=== PATIENT | female | born 1960 | race Caucasian/White ===

== ENCOUNTER 2016-12-11 22:32 | Observation (INO) | payer OTHER ==
[2016-12-11 22:33] VITALS: BMI 24.3
[2016-12-11 22:51] VITALS: RESP 20
--- NOTE | 2016-12-12 00:02 | C.PDOC ---
History Of Present Illness Patient with known history of COPD/asthma, DVT/PE with IVC filter and Lupus c/o recent onset of cold symptoms with cough and congestion for the past week. She was seen by her PMD Dr Moser and started on Cipro without relief. The antibiotic was changed to Zithromax several days ago. She continues to cough producing a yellow sputum. She is now c/o severe right sided pleuritic chest pain that is worse with deep inspiration, movement and lying supine. She feels short of breath and feverish. She did use her nebulizer prior to arrival with some relief. Time Seen by Provider: 12/11/16 22:43 Chief Complaint (Nursing): Headache History Per: Patient History/Exam Limitations: no limitations Onset/Duration Of Symptoms: Days Current Symptoms Are (Timing): Still Present Initiating Event: Upper Respiratory Illness Quality: Sharp, "Pain" Exacerbating Factor(s): Laying Flat Current Respiratory Medications: Albuterol, Steroid Inhaler Past Medical History Vital Signs: Last Vital Signs Temp 98.2 F 12/11/16 23:19 Pulse 79 12/11/16 23:19 Resp 20 12/11/16 23:19 BP 146/88 12/11/16 23:19 Pulse Ox 95 12/12/16 00:49 - Medical History PMH: Anxiety, Arthritis, Asthma, COPD, Depression, Diabetes (New Onset), Deep Vein Thrombosis, Gastritis, Kidney Stones, Mitral Valve Prolapse, Pneumonia, Pulmonary Embolism, Chronic Kidney Disease, Sleep Apnea Other PMH: Lupus, Pulmonary Embolism Surgical History: No Surg Hx - [facility] Procedures CYSTOSCOPY NEC (10/05/14) URETEROSCOPY (10/05/14) Family History: States: Unknown Family Hx - Social History Hx Tobacco Use: No Hx Alcohol Use: No Hx Substance Use: No - Immunization History Hx Tetanus Toxoid Vaccination: Yes Hx Influenza Vaccination: Yes Hx Pneumococcal Vaccination: Yes Review Of Systems Except As Marked, All Systems Reviewed And Found Negative. Constitutional: Positive for: Fever, Weakness, Malaise ENT: Negative for: Nose Discharge, Nose Congestion, Throat Pain Cardiovascular: Positive for: Chest Pain Respiratory: Positive for: Cough, Shortness of Breath, SOB with Excertion, Pleuritic Pain, Sputum (yellow), Wheezing Gastrointestinal: Negative for: Nausea, Vomiting, Abdominal Pain Skin: Negative for: Rash Neurological: Negative for: Weakness Physical Exam - Physical Exam Appears: In Acute Distress Skin: Normal Color, Warm, Dry Head: Atraumatic Eye(s): bilateral: Normal Inspection, PERRL, EOMI Oral Mucosa: Moist Throat: Normal Neck: Normal, No Midline Cervical Tenderness Lymphatic: No Adenopathy Chest: Symmetrical Cardiovascular: Rhythm Regular Respiratory: No Accessory Muscle Use, Rhonchi (right base), No Wheezing, No Plerual Rub Gastrointestinal/Abdominal: Normal Exam, Soft, No Tenderness Extremity: No Pedal Edema, No Calf Tenderness, Capillary Refill (normal) Neurological/Psych: Oriented x3, Normal Speech, Normal Cognition ED Course And Treatment - Laboratory Results Result Diagrams: 12/12/16 00:16 12/12/16 00:16 Lab Interpretation: No Acute Changes ECG: Interpreted By De ECG Rhythm: Sinus Rhythm ECG Interpretation: No Acute Changes O2 Sat by Pulse Oximetry: 95 - Radiology CXR: Interpreted by De CXR Interpretation: Yes: No Acute Disease - Physician Consult Information Time Consulting Physician Contacted: 00:57 Physician Contacted: Gretchen Moser Disposition - Disposition Disposition Time: 00:58 Condition: FAIR Forms: [facility] (South African) - Clinical Impression Clinical Impression: Chest pain, pleuritic Physician Patient Turnover Patient Signed Over To: Roosevelt Barboza DO Handoff Comments: pending labs and contact with Dr Moser
[2016-12-12 00:24] LABS: BASO # 0.1 K/uL (0.0-0.2); BASO % 0.7 % (0.0-2.0); EOS # 0.2 K/uL (0.0-0.7); EOS % 1.8 % (0.0-4.0); HEMATOCRIT 36.8 % (34.0-47.0); LYMPH # 2.9 K/uL (1.0-4.3); LYMPH % 28.3 % (20.0-40.0); MEAN CELL VOLUME 90.8 fL (81.0-99.0); MEAN CORPUSCULAR HEMOGLOBIN 30.3 pg (27.0-31.0); MEAN CORPUSCULAR HGB CONC 33.4 g/dL (33.0-37.0); MEAN PLATELET VOLUME 8.9 fL (7.2-11.7); MONO # 0.9 K/uL (0.0-0.8); MONO % 8.3 % (0.0-10.0); NRBC % 0.1 % (0.0-2.0); RED CELL DISTRIBUTION WIDTH 14.2 % (11.5-14.5); WHITE BLOOD COUNT 10.4 K/uL (4.8-10.8)
[2016-12-12 00:35] LABS: CHLORIDE 101 mmol/L (98-107); SODIUM 134 mmol/L (132-148)
[2016-12-12 00:36] LABS: POTASSIUM 4.6 mmol/L (3.6-5.2)
[2016-12-12 00:38] LABS: ALKALINE PHOSPHATASE 59 U/L (38-126); ALT/SGPT 31 U/L (9-52); AST/SGOT 34 U/L (14-36); BILIRUBIN,TOTAL 0.8 mg/dL (0.2-1.3); BLOOD UREA NITROGEN 17 mg/dL (7-17); CALCIUM 8.3 mg/dl (8.6-10.4); CARBON DIOXIDE 23 mmol/L (22-30); GFR AFRICAN-AMERICAN > 60; GLUCOSE,RANDOM 106 mg/dL (65-105)
[2016-12-12 01:03] LABS: INR 1.5
[2016-12-12 07:38] LABS: INR 1.5
--- NOTE | 2016-12-12 08:39 | RAD ---
PROCEDURE: CHEST RADIOGRAPH, 1 VIEW HISTORY: Pneumonia COMPARISON: 07/14/2015 FINDINGS: LUNGS: Small left pleural effusion with adjacent left basilar consolidation. Mild venous congestion. Biapical pleural thickening. PLEURA: As above. CARDIOVASCULAR: Normal. OSSEOUS STRUCTURES: No significant abnormalities. VISUALIZED UPPER ABDOMEN: Normal. OTHER FINDINGS: None. IMPRESSION: Small left pleural effusion with adjacent left basilar consolidation. Mild venous congestion. Biapical pleural thickening.
[2016-12-12] MEDS: Pantoprazole 40 mg EC Tab PO SCH (10:22)
--- NOTE | 2016-12-12 11:43 | CP.PCM.PN ---
Subjective - Date & Time of Evaluation Date of Evaluation: 12/12/16 Time of Evaluation: 11:40 - Subjective Subjective: Progress note. Attending: Dr. Moser 56 yo female presenting with pleuritic chest pain x 1 day, subjective fevers. Says it has happened before when she had PE back in 2009. Initially thought it was same thing. Previously was being treated with cipro for bronchitis/URI. Failed outpatient treatment. Seen and examined at bedside today. Still having some chest and shoulder pain, also some other vague body aches and pains. Has not been taking medications for lupus. Sees Dr. Dunlap PMH: COPD DVT PE Spinal stenosis IVC filter Lupus PSH: IVC filter tonsillectomy Allergies: morphine sulfa -pcn FH DM Home meds: vitamin D ventolin symbicort Social hx: Denies smoking, drinking, drug use. Born [place] , but of [place] descent. Objective - Vital Signs/Intake and Output Vital Signs (last 24 hours): Temp Pulse Resp BP Pulse Ox 97.5 F L 70 20 112/74 96 12/12/16 08:11 12/12/16 08:11 12/12/16 08:11 12/12/16 08:11 12/12/16 08:11 - Medications Medications: Current Medications Hydromorphone HCl (Dilaudid) 2 mg IVP Q4H PRN PRN Reason: Pain, moderate (4-7) Last Admin: 12/12/16 10:29 Dose: 2 mg Pantoprazole Sodium (Protonix Ec Tab) 40 mg PO DAILY [facility] Last Admin: 12/12/16 10:22 Dose: 40 mg Warfarin Sodium (Coumadin) 6 mg PO 1800 [facility] Stop: 12/12/16 18:01 - Labs Labs: 12/12/16 00:16 12/12/16 00:16 PT 17.0 SECONDS (9.7-12.2) H 12/12/16 07:16 INR 1.5 12/12/16 07:16 - Constitutional Appears: Non-toxic, No Acute Distress - Head Exam Head Exam: ATRAUMATIC, NORMAL INSPECTION, NORMOCEPHALIC - Eye Exam Eye Exam: EOMI - ENT Exam ENT Exam: Mucous Membranes Moist - Neck Exam Neck Exam: Full ROM, Normal Inspection - Respiratory Exam Respiratory Exam: Decreased Breath Sounds. absent: Respiratory Distress - Cardiovascular Exam Cardiovascular Exam: +S1, +S2 - GI/Abdominal Exam GI & Abdominal Exam: Soft, Normal Bowel Sounds. absent: Tenderness - Extremities Exam Extremities Exam: Full ROM, Normal Inspection - Neurological Exam Neurological Exam: Alert, Awake, Oriented x3 - Psychiatric Exam Psychiatric exam: Normal Affect, Normal Mood - Skin Skin Exam: Dry, Intact, Normal Color, Warm Assessment and Plan - Assessment and Plan (Free Text) Assessment: This is a 56 year old female with past medical hx of COPD, DVT/PE, IVC filter, lupus presenting with pleuritic chest pain 1. Pleuritic chest pain -d dimer negative -VSS -trops negative -cxr negative Hx of COPD -duonebs -solumedrol 2. hx of PE -continue warfarin 6 mg po daily -check inr 3. hx of lupus -will consult. Dr. Dunlap. recs appreciated. 4. GI/DVT ppx -warfarin -protonix discussed with Dr. Moser
[2016-12-12] MEDS: Albuterol-Ipratrop 3 mg / 0.5 (3 ml) UD INH SCH ×2 (13:39→20:23)
[2016-12-13] MEDS: Albuterol-Ipratrop 3 mg / 0.5 (3 ml) UD INH SCH ×3 (01:18→13:38)
[2016-12-13] MEDS ORDERED: HYDROmorphone 1 mg/ml ISec IVP ONE (02:17)
[2016-12-13 08:00] LABS: BASO # 0.1 K/uL (0.0-0.2); BASO % 0.7 % (0.0-2.0); EOS # 0.1 K/uL (0.0-0.7); EOS % 1.5 % (0.0-4.0); HEMATOCRIT 35.8 % (34.0-47.0); LYMPH % 37.7 % (20.0-40.0); MEAN CELL VOLUME 90.9 fL (81.0-99.0); MEAN CORPUSCULAR HEMOGLOBIN 30.2 pg (27.0-31.0); MEAN CORPUSCULAR HGB CONC 33.3 g/dL (33.0-37.0); MEAN PLATELET VOLUME 9.6 fL (7.2-11.7); MONO # 0.8 K/uL (0.0-0.8); MONO % 9.5 % (0.0-10.0); NRBC % 0.1 % (0.0-2.0); RED CELL DISTRIBUTION WIDTH 14.2 % (11.5-14.5)
[2016-12-13 08:29] LABS: CHLORIDE 100 mmol/L (98-107); POTASSIUM 4.2 mmol/L (3.6-5.2); SODIUM 132 mmol/L (132-148)
[2016-12-13 08:31] LABS: AST/SGOT 30 U/L (14-36); BILIRUBIN,TOTAL 1.2 mg/dL (0.2-1.3); CARBON DIOXIDE 23 mmol/L (22-30); GFR AFRICAN-AMERICAN > 60
[2016-12-13 08:32] LABS: ALB/GLOB RATIO 1.3 (1.0-2.1); ALKALINE PHOSPHATASE 62 U/L (38-126); ALT/SGPT 16 U/L (9-52); BLOOD UREA NITROGEN 13 mg/dL (7-17); CALCIUM 8.1 mg/dl (8.6-10.4); GLUCOSE,RANDOM 82 mg/dL (65-105); TOTAL PROTEIN 6.6 g/dL (6.3-8.3)
[2016-12-13 08:46] VITALS: BP 107/69; PULSE 72; TEMP 98.5; O2SAT 96
--- NOTE | 2016-12-13 09:51 | HP ---
HISTORY OF PRESENT ILLNESS: This is a 56-year-old female, admitted to the hospital complaining of weakness, fatigue, tiredness. The patient came to the hospital with severe intractable pain. The patient is treated with narcotics, showed improvement. Advised admission, bedrest showed improvement, pulmonary embolism. No smoking. No drinking. PHYSICAL EXAMINATION: GENERAL: The patient is awake, alert, oriented. VITAL SIGNS: Temperature 98, pulse 90. HEENT: Within normal limits. NECK: Supple. CHEST: Symmetrical. HEART: Regular. ABDOMEN: Soft. EXTREMITIES: No edema. IMPRESSION: Intractable pain. The patient on bedrest, pain management. Gretchen Moser MD
[2016-12-13] MEDS: Pantoprazole 40 mg EC Tab PO SCH (10:42)
--- NOTE | 2016-12-14 10:37 | CARD ---
APPROVED REPORT EKG Measurement Heart [id number] <Conclusion> Normal sinus rhythm Possible Left atrial enlargement Borderline ECG
[2016-12-16 12:52] LABS: CCP IGG <16 Units (<20)
[2016-12-16 13:55] LABS: Interpretation Negative (Negative)
== END 2016-12-13 16:55 | disposition home or self-care (01) ==
LOC: C.ER 22:32 → C.6T 12-12 02:14
PROVIDERS: ADMIT Internal Medicine Pulmonary Disease; ATTEND Internal Medicine Pulmonary Disease
DX: R07.81 Pleurodynia (principal); J44.9 Chronic obstructive pulmonary disease, unspecified; E11.22 Type 2 diabetes mellitus with diabetic chronic kidney disease; N18.9 Chronic kidney disease, unspecified; G47.30 Sleep apnea, unspecified; I34.1 Nonrheumatic mitral (valve) prolapse
CPT/HCPCS: 36415; 71010; 80053; 82948; 83520; 84145; 84484; 85025; 85378; 85610; 85651; 86038; 86060; 86140; 86200; 86225; 86235; 87040; 93005; 94640; 96374; 97116; 97163; 97530; 99285; G0378; G8978; G8979; J1170; J2405

== ENCOUNTER 2016-12-14 08:53 | Emergency (ER) | payer OTHER ==
[2016-12-14 09:05] VITALS: RESP 18; BMI 25.5
--- NOTE | 2016-12-14 09:55 | C.PDOC ---
History Of Present Illness 56 y/o female, with PMHx of chronic DVT with IVC filter, presents to ED for evaluation of left upper leg pain since this morning. Notes that she was recently discharged yesterday from [facility] inpatient for paralysis in the right arm. Otherwise, denies change in sensation, chest pain, shortness of breath, or fever. Time Seen by Provider: 12/14/16 09:09 Chief Complaint (Nursing): Lower Extremity Problem/Injury History Per: Patient History/Exam Limitations: no limitations Onset/Duration Of Symptoms: Hrs Current Symptoms Are (Timing): Still Present Recent travel outside of the [place]: No Additional History Per: Patient Past Medical History Reviewed: Historical Data, Nursing Documentation, Vital Signs Vital Signs: Last Vital Signs Temp 98.1 F 12/14/16 11:36 Pulse 85 12/14/16 11:36 Resp 18 12/14/16 11:36 BP 116/82 12/14/16 11:36 Pulse Ox 99 12/14/16 14:41 - Medical History PMH: Anxiety, Arthritis, Asthma, COPD, Depression, Diabetes (New Onset), Deep Vein Thrombosis, Gastritis, Kidney Stones, Mitral Valve Prolapse, Pneumonia, Pulmonary Embolism, Chronic Kidney Disease, Sleep Apnea Surgical History: - [facility] Procedures CYSTOSCOPY NEC (10/05/14) URETEROSCOPY (10/05/14) Family History: States: Unknown Family Hx - Social History Hx Tobacco Use: No Hx Alcohol Use: No Hx Substance Use: No - Immunization History Hx Tetanus Toxoid Vaccination: Yes Hx Influenza Vaccination: Yes Hx Pneumococcal Vaccination: Yes Review Of Systems Except As Marked, All Systems Reviewed And Found Negative. Constitutional: Negative for: Fever, Chills Cardiovascular: Negative for: Chest Pain, Palpitations Respiratory: Negative for: Shortness of Breath Musculoskeletal: Positive for: Leg Pain (left upper leg pain) Neurological: Negative for: Weakness, Numbness, Headache Physical Exam - Physical Exam Appears: Non-toxic, No Acute Distress Skin: Normal Color, Warm, Dry Head: Atraumatic, Normacephalic Eye(s): bilateral: Normal Inspection Oral Mucosa: Moist Chest: Symmetrical Cardiovascular: Rhythm Regular, No Murmur Respiratory: Normal Breath Sounds, No Rales, No Rhonchi, No Wheezing Gastrointestinal/Abdominal: Soft, No Tenderness Extremity: Normal ROM (FROM of left leg), Tenderness (left upper leg), No Pedal Edema, Capillary Refill (less than 2 seconds), No Deformity, No Swelling Extremity: Bilateral: Atraumatic, Normal Color And Temperature Pulses: Left Dorsalis Pedis: Normal, Right Dorsalis Pedis: Normal Neurological/Psych: Oriented x3, Normal Speech, Normal Cognition, Normal Motor, Normal Sensation Gait: Steady ED Course And Treatment O2 Sat by Pulse Oximetry: 99 (RA) Pulse Ox Interpretation: Normal Progress Note: Doppler ordered and reviewed. Pt was given Tramadol. Doppler was negative. Pt is being discharged home, with instructions to follow up with PMD in 1-2 days. Reassessment Condition: Improved - Physician Consult Information Physician Contacted: Gretchen Moser Outcome Of Conversation: discharge Medical Decision Making Medical Decision Making: Patient discharged yesterday now complaining of left leg pain Patient requesting that ED call Dr Moser Case discussed with Dr Moser who requests discharge and follow up as outpatient Disposition Counseled Patient/Family Regarding: Studies Performed, Diagnosis, Need For Followup, Rx Given - Disposition Referrals: Gretchen Moser MD [Staff Provider] - Disposition: HOME/ ROUTINE Disposition Time: 11:30 Condition: STABLE Additional Instructions: Follow up with your PMD for further evaluation Return to ED if any increase symptoms Prescriptions: Cyclobenzaprine [Cyclobenzaprine HCl] 5 mg PO BID PRN #12 tab PRN Reason: Pain, Mild (1-3) Instructions: Musculoskeletal Pain (ED), Leg Pain (ED) Forms: [facility] (Botswanan) - POA Present On Arrival: None - Clinical Impression Clinical Impression: Muscle strain, Leg pain, left - PA / HAND CLERICAL VERIFIER / Resident Statement MD/DO has reviewed & agrees with the documentation as recorded. - Scribe Statement The provider has reviewed the documentation as recorded by the Scribe Sb Jones All medical record entries made by the Rezaibcarlos enrique were at my direction and personally dictated by me. I have reviewed the chart and agree that the record accurately reflects my personal performance of the history, physical exam, medical decision making, and the department course for this patient. I have also personally directed, reviewed, and agree with the discharge instructions and disposition.
[2016-12-14 11:37] VITALS: BP 116/82; PULSE 85; TEMP 98.1
[2016-12-14 14:42] VITALS: O2SAT 99
--- NOTE | 2016-12-16 14:25 | VASCLAB ---
PROCEDURE: Lower Extremity Venous Duplex Exam. HISTORY: Pain PRIORS: Last exam 10/26/2014, normal. TECHNIQUE: Bilateral common femoral, femoral, popliteal and posterior tibial, peroneal and great saphenous veins were evaluated. Flow was assessed with color Doppler, compressibility, assessment of phasic flow and augmentation response. Report prepared by NNAMDI Almeida FINDINGS: RIGHT: 1. Common Femoral Vein: 1.1. Compressibility - Fully compressible: Thrombus - None : Flow - Phasic: Augmentation -Normal: Reflux - None. 2. Femoral Vein: 2.1. Compressibility - Fully compressible: Thrombus - None : Flow - Phasic: Augmentation -Normal: Reflux - None. 3. Popliteal Vein: 3.1. Compressibility - Fully compressible: Thrombus - None : Flow - Phasic: Augmentation -Normal: Reflux - None. 4. Posterior Tibial Vein: 4.1. Compressibility - Fully compressible: Thrombus - None: Flow - Phasic: Augmentation -Normal: Reflux - None. 5. Peroneal Vein: 5.1. Compressibility - Fully compressible: Thrombus - None: Flow - Phasic: Augmentation -Normal: Reflux - None. 6. Great Saphenous Vein: 6.1. Compressibility - Fully compressible: Thrombus - None: Flow - Phasic: Augmentation - Normal: Reflux - None. LEFT: 1. Common Femoral Vein: 1.1. Compressibility - Fully compressible: Thrombus - None: Flow - Phasic: Augmentation -Normal: Reflux - None. 2. Femoral Vein: 2.1. Compressibility - Fully compressible: Thrombus - None: Flow - Phasic: Augmentation -Normal: Reflux - Mild. 3. Popliteal Vein: 3.1. Compressibility - Fully compressible: Thrombus - None : Flow - Phasic: Augmentation -Normal: Reflux - Moderate. 4. Posterior Tibial Vein: 4.1. Compressibility - Fully compressible: Thrombus - None: Flow - Phasic: Augmentation -Normal: Reflux - None. 5. Peroneal Vein: 5.1. Compressibility - Fully compressible: Thrombus - None: Flow - Phasic: Augmentation -Normal: Reflux - None. 6. Great Saphenous Vein: 6.1. Compressibility - Fully compressible: Thrombus - None: Flow - Phasic: Augmentation - Normal: Reflux - None. OTHER FINDINGS: Right: None significant. Left: None significant. IMPRESSION: Right: No evidence of deep or superficial vein thrombosis of the right lower extremity. Normal valve function noted of the right side. Left: No evidence of deep or superficial vein thrombosis of the left lower extremity. Valvular incompetence note of the left femoral and popliteal veins.
== END 2016-12-14 12:17 | disposition home or self-care (01) ==
LOC: C.ER 08:53
DX: S76.912A Strain of unspecified muscles, fascia and tendons at thigh level, left thigh, initial encounter (principal); X58.XXXA Exposure to other specified factors, initial encounter; M79.605 Pain in left leg; E11.9 Type 2 diabetes mellitus without complications; Z86.718 Personal history of other venous thrombosis and embolism

== ENCOUNTER 2017-02-23 05:23 | Inpatient (IN) | payer OTHER ==
[2017-02-23 05:24] VITALS: BMI 25.5
--- NOTE | 2017-02-23 06:32 | C.PDOC ---
History Of Present Illness 57 years old female with Hx of lupus, COPD, bilateral DVT, and PE presents to ED with complaints of left foot pain that began on Friday. Patient's last INR was 1.8. Patient states she cannot bear weight on foot. Patient denies injuries to foot, denies chest pain, SOB, nausea or vomiting, no fever or chills. . Patient also states she took Tramadol at midnight with no improvement. Time Seen by Provider: 02/23/17 06:01 Chief Complaint (Nursing): Lower Extremity Problem/Injury History Per: Patient History/Exam Limitations: no limitations Onset/Duration Of Symptoms: Days Current Symptoms Are (Timing): Still Present Recent travel outside of the [place]: No Past Medical History Reviewed: Historical Data, Nursing Documentation, Vital Signs Vital Signs: Last Vital Signs Temp 97.6 F 02/23/17 05:33 Pulse 98 H 02/23/17 05:33 Resp 20 02/23/17 05:33 BP 145/91 H 02/23/17 05:33 Pulse Ox 98 02/23/17 07:05 - Medical History PMH: Anxiety, Arthritis, Asthma, COPD, Depression, Diabetes (New Onset), Deep Vein Thrombosis, Gastritis, Kidney Stones, Mitral Valve Prolapse, Pneumonia, Pulmonary Embolism, Chronic Kidney Disease, Sleep Apnea Surgical History: - [facility] Procedures CYSTOSCOPY NEC (10/05/14) URETEROSCOPY (10/05/14) Family History: States: No Known Family Hx - Social History Hx Tobacco Use: No Hx Alcohol Use: No Hx Substance Use: No - Immunization History Hx Tetanus Toxoid Vaccination: Yes Hx Influenza Vaccination: Yes Hx Pneumococcal Vaccination: Yes Review Of Systems Constitutional: Negative for: Fever, Chills Cardiovascular: Negative for: Chest Pain, Palpitations Respiratory: Negative for: Shortness of Breath Gastrointestinal: Negative for: Nausea, Vomiting, Abdominal Pain Musculoskeletal: Positive for: Foot Pain (Left) Skin: Negative for: Rash Neurological: Negative for: Weakness, Numbness Psych: Negative for: Depression, Suicidal ideation Physical Exam - Physical Exam Appears: Non-toxic, Other (Awake and alert; appears uncomfortable) Skin: Warm, Dry Head: Atraumatic, Normacephalic Eye(s): bilateral: Normal Inspection Neck: Supple Chest: Symmetrical, No Tenderness Cardiovascular: Rhythm Regular Respiratory: Normal Breath Sounds, No Rales, No Rhonchi, No Wheezing Gastrointestinal/Abdominal: Soft, No Tenderness, No Distention Extremity: Normal ROM (Lower extremity), Tenderness (Left foot diffusly tender) , No Pedal Edema, Calf Tenderness (Posterior left), Swelling ( to left foot) Pulses: Left Dorsalis Pedis: Normal, Right Dorsalis Pedis: Normal Neurological/Psych: Oriented x3, Normal Speech, Normal Cognition ED Course And Treatment - Laboratory Results Result Diagrams: 02/23/17 06:48 02/23/17 06:48 O2 Sat by Pulse Oximetry: 98 (Room air) Pulse Ox Interpretation: Normal Medical Decision Making Medical Decision Making: Administered Tramadol. Ordered blood work, X-ray of left foot, and US of lower extremity. Disposition - Disposition Disposition Time: 07:06 Condition: STABLE Forms: [facility] (Algerian) - Clinical Impression Clinical Impression: Foot pain, left - PA / MAT MACHINE TENDER / Resident Statement MD/DO has reviewed & agrees with the documentation as recorded. - Scribe Statement The provider has reviewed the documentation as recorded by the Scribcarlos enrique Pittman All medical record entries made by the Scribe were at my direction and personally dictated by me. I have reviewed the chart and agree that the record accurately reflects my personal performance of the history, physical exam, medical decision making, and the department course for this patient. I have also personally directed, reviewed, and agree with the discharge instructions and disposition. Physician Patient Turnover Patient Signed Over To: Romero Sanchez Handoff Comments: f/u labs, xray and sonogram and dipso accordingly
[2017-02-23 06:50] LABS: BASO # 0.1 K/uL (0.0-0.2); BASO % 0.7 % (0.0-2.0); EOS % 0.4 % (0.0-4.0); LYMPH # 1.8 K/uL (1.0-4.3); MEAN CELL VOLUME 88.5 fL (81.0-99.0); MEAN CORPUSCULAR HEMOGLOBIN 30.3 pg (27.0-31.0); MEAN CORPUSCULAR HGB CONC 34.3 g/dL (33.0-37.0); MEAN PLATELET VOLUME 8.5 fL (7.2-11.7); MONO # 1.2 K/uL (0.0-0.8); MONO % 10.7 % (0.0-10.0); NEUT # 7.7 K/uL (1.8-7.0); NEUT % 71.2 % (50.0-75.0); RBC 3.96 Mil/uL (3.80-5.20); RED CELL DISTRIBUTION WIDTH 14.5 % (11.5-14.5); WHITE BLOOD COUNT 10.9 K/uL (4.8-10.8)
[2017-02-23 07:03] LABS: BLOOD UREA NITROGEN 14 mg/dL (7-17); CALCIUM 8.1 mg/dl (8.6-10.4); GFR AFRICAN-AMERICAN > 60; GFR NON-AFRICAN AMERICAN > 60
[2017-02-23 07:14] LABS: INR 3.4
--- NOTE | 2017-02-23 08:26 | RAD ---
PROCEDURE: Left Foot Radiographs. HISTORY: diffuse foot pain COMPARISON: None. FINDINGS: BONES: Normal. No fracture. JOINTS: Normal. SOFT TISSUES: Normal. OTHER FINDINGS: None. IMPRESSION: No evidence of acute fracture or dislocation.
[2017-02-23] MEDS ORDERED: Oxycodone/Acetaminophen 5/325 mg Tab ONE (12:00)
[2017-02-23] MEDS: Oxycodone/Acetaminophen 5/325 mg Tab PO PRN ×2 (12:01→22:40)
--- NOTE | 2017-02-24 08:06 | CP.PCM.PN ---
Subjective - Date & Time of Evaluation Date of Evaluation: 02/24/17 Time of Evaluation: 10:00 - Subjective Subjective: Dr. Moser note: Patient is a 57 year old female here for inretractable foot pain. She says the pain started Friday and lasted for a day and became worse even after taking Motrin. She says the pain is sharp and encompasses her whole foot. Objective - Vital Signs/Intake and Output Vital Signs (last 24 hours): Temp Pulse Resp BP Pulse Ox 97.9 F 68 20 101/66 98 02/23/17 23:10 02/23/17 23:10 02/23/17 23:10 02/23/17 23:10 02/23/17 23:10 - Medications Medications: Current Medications Oxycodone/Acetaminophen (Percocet 5/325 Mg Tab) 1 tab PO Q4H PRN PRN Reason: Pain, moderate (4-7) Stop: 02/26/17 11:56 Last Admin: 02/23/17 22:40 Dose: 1 tab Tramadol HCl (Ultram) 50 mg PO Q8 PRN PRN Reason: Pain, moderate (4-7) - Labs Labs: 02/23/17 06:48 02/23/17 06:48 PT 40.0 SECONDS (9.7-12.2) H* 02/23/17 06:48 INR 3.4 02/23/17 06:48 APTT 37 SECONDS (21-34) H 02/23/17 06:48 - Constitutional Appears: Non-toxic, No Acute Distress - Eye Exam Eye Exam: Normal appearance - Respiratory Exam Respiratory Exam: Clear to Ausculation Bilateral. absent: Rales, Rhonchi, Wheezes - Cardiovascular Exam Cardiovascular Exam: REGULAR RHYTHM, RRR, +S1, +S2. absent: Gallop, Rubs - GI/Abdominal Exam GI & Abdominal Exam: Soft, Normal Bowel Sounds. absent: Tenderness - Extremities Exam Extremities Exam: Tenderness (left foot) - Back Exam Back Exam: NORMAL INSPECTION - Neurological Exam Neurological Exam: Alert, Awake - Psychiatric Exam Psychiatric exam: Anxious - Skin Skin Exam: Normal Color, Warm Assessment and Plan (1) Foot pain, left Assessment & Plan: No redness or swelling, no evidence of gout, her urice acid is wnl. Podiatry consult x:ray unremarkable. ESR is low but CRP is high. Started Neurontin 100mg TID in addition to other medications. PT Status: Acute (2) DVT (deep venous thrombosis) Assessment & Plan: Patient is on Coumadin but her INR is 3.4, willl continue to hold her Coumadin, and re check INR tomorrow morning. Status: Chronic (3) Lupus (systemic lupus erythematosus) Assessment & Plan: Patient follows up with Dr. Dunlap. Status: Chronic (4) Prophylactic measure Assessment & Plan: supratherputic INR, Pepcid 20mg. Status: Acute
[2017-02-24] MEDS: Oxycodone/Acetaminophen 5/325 mg Tab PO PRN ×2 (11:03→21:54)
--- NOTE | 2017-02-24 11:34 | VASCLAB ---
PROCEDURE: Left Lower Extremity Venous Duplex Exam. HISTORY: left foot and leg pain, Previous DVT/PE, On Coumadin PRIORS: 12/14/16, See chart. TECHNIQUE: Left common femoral, femoral, popliteal and posterior tibial, peroneal and great saphenous veins were evaluated. Flow was assessed with color Doppler, compressibility, assessment of phasic flow and augmentation response. Report prepared by Kunal Cartagena, T FINDINGS: LEFT: 1. Common Femoral Vein: 1.1. Compressibility - Fully compressible: Thrombus - None : Flow - Phasic: Augmentation -Normal: Reflux - . 2. Femoral Vein: 2.1. Compressibility - Fully compressible: Thrombus - None: Flow - Phasic: Augmentation -Normal: Reflux - . 3. Popliteal Vein: 3.1. Compressibility - Fully compressible: Thrombus - None: Flow - Phasic: Augmentation -Normal: Reflux - Moderate. 4. Posterior Tibial Vein: 4.1. Compressibility - Fully compressible: Thrombus - None: Flow - : Augmentation -: Reflux - . 5. Peroneal Vein: 5.1. Compressibility - Fully compressible: Thrombus - None: Flow - : Augmentation -: Reflux - . 6. Great Saphenous Vein: 6.1. Compressibility - Fully compressible: Thrombus - None: Flow - Phasic: Augmentation - : Reflux - . OTHER FINDINGS: IMPRESSION: An echogenic bands and wall thickening was noted in the common femoral and proximal femoral vein, possibly as a result of scarring process from previous DVT, however they were patent. No evidence of deep or superficial vein thrombosis of the left lower extremity. Moderate venous reflux was noted in the deep venous system. Normal venous flow noted in the right common femoral vein.
--- NOTE | 2017-02-24 11:47 | HP ---
HISTORY OF PRESENT ILLNESS: Ms. Yeboah chief complaint weakness, fatigue, tiredness. Patient came to the emergency room DVT, pulmonary embolism, and a history of lupus. PHYSICAL EXAMINATION: GENERAL: The patient is awake, alert, and oriented. VITAL SIGNS: Temperature is 98, pulse 90. HEENT: Within normal limits. NECK: Supple. CHEST: Symmetrical. HEART: Regular. ABDOMEN: Soft. EXTREMITIES: No edema. IMPRESSION: Patient suffers from and deep venous thrombosis by history. At this point, she will get supportive care. Gretchen Moser MD
[2017-02-24 12:39] LABS: BASO # 0.1 K/uL (0.0-0.2); BASO % 0.6 % (0.0-2.0); EOS # 0.1 K/uL (0.0-0.7); EOS % 0.6 % (0.0-4.0); LYMPH # 2.3 K/uL (1.0-4.3); LYMPH % 22.6 % (20.0-40.0); MEAN CELL VOLUME 89.5 fL (81.0-99.0); MEAN CORPUSCULAR HEMOGLOBIN 30.2 pg (27.0-31.0); MEAN CORPUSCULAR HGB CONC 33.7 g/dL (33.0-37.0); MEAN PLATELET VOLUME 8.5 fL (7.2-11.7); MONO % 10.2 % (0.0-10.0); NEUT # 6.6 K/uL (1.8-7.0); RBC 3.98 Mil/uL (3.80-5.20); RED CELL DISTRIBUTION WIDTH 14.7 % (11.5-14.5)
[2017-02-24 12:55] LABS: INR 3.4
[2017-02-24 12:58] LABS: PROTHROMBIN TIME 40.4 SECONDS (9.7-12.2)
--- NOTE | 2017-02-24 16:41 | CP.PCM.CON ---
History of Present Illness - History of Present Illness History of Present Illness: consult note for Dr. Bonilla, 57 y/o female with pmhx of lupus, COPD, bilateral DVT, PE, spinal stenosis, seen at bedside for left foot pain. Patient states that she noticed the pain, swelling and redness on friday and came to the ED the following day. Patient states that she has been unable to bear weight on the foot due to pain. Patient states that the swelling and redness has gone down slightly but the pain is still 10/10. Patient denies any other pedal complaints at this time. SHe states that she has never felt this type of pain in her foot before. Patient denies any trauma. Patient denies n/f/v/d/c/sob. Review of Systems - Constitutional Constitutional: As Per HPI Past Patient History - Past Medical History & Family History Past Medical History?: Yes - Past Social History Smoking Status: Never Smoked - CARDIAC Hx Mitral Valve Prolapse: Yes - PULMONARY Hx Asthma: Yes Hx Chronic Obstructive Pulmonary Disease (COPD): Yes Hx Pneumonia: Yes Hx Pulmonary Embolism: Yes Hx Sleep Apnea: Yes - NEUROLOGICAL Hx Neurological Disorder: No - HEENT Hx HEENT Problems: No - RENAL Hx Chronic Kidney Disease: Yes Hx Kidney Stones: Yes - ENDOCRINE/METABOLIC Hx Endocrine Disorders: Yes Hx Diabetes Mellitus Type 2: Yes Hx Systemic Lupus Erythematosus: Yes - HEMATOLOGICAL/ONCOLOGICAL Hx Blood Disorders: No Other/Comment: SLE - INTEGUMENTARY Hx Dermatological Problems: No - MUSCULOSKELETAL/RHEUMATOLOGICAL Hx Arthritis: Yes Hx Falls: No - GASTROINTESTINAL Hx Gastritis: Yes - GENITOURINARY/GYNECOLOGICAL Hx Genitourinary Disorders: Yes Hx Urinary Tract Infection: Yes - PSYCHIATRIC Hx Anxiety: Yes Hx Depression: Yes Hx Sexual Abuse: No Hx Substance Use: No - SURGICAL HISTORY Hx Surgeries: Yes Hx Section: Yes Hx Vascular Surgery: Yes (bilateral lower extremity) Other/Comment: IVC Filter - ANESTHESIA Hx Anesthesia: Yes Hx Anesthesia Reactions: No Hx Malignant Hyperthermia: No Meds Allergies/Adverse Reactions: Allergies Allergy/AdvReac Type Severity Reaction Status Date / Time Iodinated Contrast- Oral and Allergy RASH Verified 02/23/17 05:39 IV Dye [Iodinated Contrast Media - IV Dye] morphine Allergy RASH Verified 02/23/17 05:39 Penicillins Allergy RASH Verified 02/23/17 05:39 prednisone Allergy RASH Verified 02/23/17 05:39 Sulfa (Sulfonamide Allergy RASH Verified 02/23/17 05:39 Antibiotics) - Medications Medications: Current Medications Gabapentin (Neurontin) 100 mg PO TID [facility] Last Admin: 02/24/17 14:10 Dose: 100 mg Oxycodone/Acetaminophen (Percocet 5/325 Mg Tab) 1 tab PO Q4H PRN PRN Reason: Pain, moderate (4-7) Stop: 02/26/17 11:56 Last Admin: 02/24/17 11:03 Dose: 1 tab Tramadol HCl (Ultram) 50 mg PO Q8 PRN PRN Reason: Pain, severe (8-10) Physical Exam - Constitutional Appears: Well, Non-toxic, No Acute Distress - Extremities Exam Additional comments: left lower extremity focused: vasc: palpable DP/lightly palpable PT pulses, TG wnl. CFT < 3 sec to all digits neuro: grossly intact derm: no edema, no erythema, no open lesions, no acute clinical signs of infection, no hyperkeratotic lesions, no interdigital maceration ortho: severe pain on palpation to plantar foot, unable to wiggle toes due to guarding and pain, unable to assess muscle ROM due to guarding - Neurological Exam Neurological exam: Alert, Oriented x3 - Psychiatric Exam Psychiatric exam: Normal Affect, Normal Mood Results - Vital Signs Recent Vital Signs: Last Vital Signs Temp 97.5 F L 02/24/17 07:10 Pulse 66 02/24/17 07:10 Resp 20 02/24/17 07:10 BP 89/57 L 02/24/17 07:10 Pulse Ox 96 02/24/17 07:10 - Labs Result Diagrams: 02/24/17 12:31 02/23/17 06:48 Labs: Laboratory Results - last 24 hr 02/24/17 02/24/17 02/24/17 12:31 12:31 12:31 WBC 10.0 RBC 3.98 Hgb 12.0 Hct 35.7 MCV 89.5 MCH 30.2 MCHC 33.7 RDW 14.7 H Plt Count 259 MPV 8.5 Neut % (Auto) 66.0 Lymph % (Auto) 22.6 [place] % (Auto) 10.2 H Eos % (Auto) 0.6 Baso % (Auto) 0.6 Neut # 6.6 Lymph # 2.3 [place] # 1.0 H Eos # 0.1 Baso # 0.1 ESR PT INR APTT Uric Acid Total Creatine Kinase 147 H C-React Prot High Sens > 15.00 H 02/24/17 02/24/17 02/24/17 12:31 12:31 12:36 WBC RBC Hgb Hct MCV MCH MCHC RDW Plt Count MPV Neut % (Auto) Lymph % (Auto) [place] % (Auto) Eos % (Auto) Baso % (Auto) Neut # Lymph # [place] # Eos # Baso # ESR 17 PT 40.4 H* INR 3.4 APTT 38 H Uric Acid 4.3 Total Creatine Kinase C-React Prot High Sens Assessment & Plan - Assessment and Plan (Free Text) Assessment: 57 y/o female seen at bedside for left foot pain Plan: patient evaluated and chart reviewed discussed in detail with attending Dr. Bonilla labs and vitals reviewed; afebrile, 10.0 x rays of left foot reveal no acute abnormalities, no fracture or dislocation f/u uric acid levels instructed patient to RICE therapy prn for pain podiatry will continue to follow while patient remains in house
[2017-02-25 06:34] LABS: INR 2.5
[2017-02-25] MEDS: Oxycodone/Acetaminophen 5/325 mg Tab PO PRN ×3 (09:00→22:40)
--- NOTE | 2017-02-25 09:54 | CP.PCM.PN ---
Subjective - Date & Time of Evaluation Date of Evaluation: 02/25/17 Time of Evaluation: 09:54 - Subjective Subjective: PGY2 medicine progress note for Dr. Moser Patient seen and examined. Patient with severe foot pain with light touch. Patient also complains of difficulty initiating urine stream. She denies burning or pain with urination but feels difficulty getting urine out. Objective - Vital Signs/Intake and Output Vital Signs (last 24 hours): Temp Pulse Resp BP Pulse Ox 98.6 F 95 H 18 92/60 L 95 02/25/17 08:10 02/25/17 08:10 02/25/17 08:10 02/25/17 08:10 02/25/17 08:10 Intake and Output: 02/25/17 02/25/17 06:59 18:59 Intake Total 520 Balance 520 - Medications Medications: Current Medications Albuterol/Ipratropium (Duoneb 3 Mg/0.5 Mg (3 Ml) Ud) 3 ml INH RQ6 PRN PRN Reason: Shortness of Breath Famotidine (Pepcid) 20 mg PO BID [facility] Last Admin: 02/25/17 09:01 Dose: 20 mg Gabapentin (Neurontin) 100 mg PO TID [facility] Last Admin: 02/25/17 09:01 Dose: 100 mg Oxycodone/Acetaminophen (Percocet 5/325 Mg Tab) 1 tab PO Q4H PRN PRN Reason: Pain, moderate (4-7) Stop: 02/26/17 11:56 Last Admin: 02/25/17 09:00 Dose: 1 tab Tramadol HCl (Ultram) 50 mg PO Q8 PRN PRN Reason: Pain, severe (8-10) Last Admin: 02/24/17 19:59 Dose: 50 mg - Labs Labs: 02/24/17 12:31 02/23/17 06:48 PT 29.0 SECONDS (9.7-12.2) H D 02/25/17 06:21 INR 2.5 D 02/25/17 06:21 APTT 38 SECONDS (21-34) H 02/24/17 12:36 - Constitutional Appears: No Acute Distress - Head Exam Head Exam: ATRAUMATIC, NORMOCEPHALIC - Eye Exam Eye Exam: EOMI - ENT Exam ENT Exam: Mucous Membranes Moist - Respiratory Exam Respiratory Exam: Clear to Ausculation Bilateral - Cardiovascular Exam Cardiovascular Exam: +S1, +S2 - GI/Abdominal Exam GI & Abdominal Exam: Soft, Normal Bowel Sounds - Extremities Exam Additional comments: left foot with mild swelling and erythema, extreme tenderness on palpation with light touch, foot is warm to touch with palpable pulses - Neurological Exam Neurological Exam: Alert, Awake - Psychiatric Exam Psychiatric exam: Normal Affect - Skin Skin Exam: Warm Assessment and Plan - Assessment and Plan (Free Text) Assessment: (1) Acute gout, left foot Assessment & Plan: mild erythema of left foot with swelling, as well as sensitivity to light touch uric acid normal, but is often normal during acute attack CRP >15 will start colchicine 0.6mg BID today Dr. Bonilla consulted- help appreciated Status: Acute (2) Urinary hesitance Assessment & Plan: UA and culture ordered UA 1+ blood, occasional bacteria, 7 squamous epithelial cells (high) will follow up culture (3) History of DVT (deep venous thrombosis) Assessment & Plan: patient has history of multiple DVT, pulmonary embolus, and has IVC filter, on lifelong coumadin therapy INR today is 2.5 will give dose of coumadin 6mg tonight and repeat INR for tomorrow morning Status: Chronic (4) Lupus (systemic lupus erythematosus) Assessment & Plan: Patient follows up with Dr. Dunlap. Patient states she has never been on plaquenil for lupus, but was on prednisone which gave her a rash Status: Chronic (5) Prophylactic measure Assessment & Plan: pepcid 20mg PO BID Status: Acute All medical management as per Dr. Moser
[2017-02-25] MEDS: Albuterol-Ipratrop 3 mg / 0.5 (3 ml) UD INH PRN (11:22)
[2017-02-25 14:10] LABS: SQUAMOUS EPITHIAL 7 /hpf (0-5); URINE BACTERIA OCC (<OCC); URINE BILIRUBIN NEGATIVE (NEGATIVE); URINE BLOOD 1+ (NEGATIVE); URINE CLARITY Clear (Clear); URINE COLOR Yellow (YELLOW); URINE GLUCOSE (UA) NORMAL (Normal); URINE LEUKOCYTE ESTERASE NEG Leu/uL (Negative); URINE NITRATE NEGATIVE (NEGATIVE); URINE PROTEIN NEGATIVE (NEGATIVE); URINE UROBILINOGEN NORMAL mg/dL (0.2-1.0)
[2017-02-26 06:46] LABS: BASO # 0.1 K/uL (0.0-0.2); BASO % 0.6 % (0.0-2.0); EOS # 0.1 K/uL (0.0-0.7); HEMOGLOBIN 11.9 g/dL (11.0-16.0); LYMPH # 2.7 K/uL (1.0-4.3); LYMPH % 31.3 % (20.0-40.0); MEAN CELL VOLUME 89.5 fL (81.0-99.0); MEAN CORPUSCULAR HEMOGLOBIN 29.7 pg (27.0-31.0); MEAN CORPUSCULAR HGB CONC 33.3 g/dL (33.0-37.0); MEAN PLATELET VOLUME 8.6 fL (7.2-11.7); MONO % 11.8 % (0.0-10.0); NEUT # 4.8 K/uL (1.8-7.0); NEUT % 55.3 % (50.0-75.0); RED CELL DISTRIBUTION WIDTH 14.7 % (11.5-14.5); WHITE BLOOD COUNT 8.7 K/uL (4.8-10.8)
[2017-02-26 06:55] LABS: INR 1.6; PROTHROMBIN TIME 17.9 SECONDS (9.7-12.2)
--- NOTE | 2017-02-26 06:57 | CON ---
HISTORY OF PRESENT ILLNESS: The date of the consultation is 02/25/2017 at the request of Dr. Moser. This is a 57-year-old female, who was admitted with intractable left foot pain, onset in the evening. We see her this morning. Alert, oriented x3. There was significant amount of cellulitis and swelling about the left foot extending to the ankle region. Upon examination of the neurovascular status, it appears within normal limits. Palpable vascular thrill to both bilateral extremities. No open sinus tracts. No signs of purulence. No signs of infected cellulitis. At this time, I am leaning towards the diagnosis of acute gouty flare-up. Uric acid levels will be ordered and colchicine as needed. Both weightbearing and potential transfer to subacute would be warranted. Yogi Becker DPM
--- NOTE | 2017-02-26 07:08 | CP.PCM.PN ---
Objective - Vital Signs/Intake and Output Vital Signs (last 24 hours): Temp Pulse Resp BP Pulse Ox 98.2 F 101 H 20 110/71 96 02/25/17 23:05 02/25/17 23:05 02/25/17 23:05 02/25/17 23:05 02/25/17 23:05 Intake and Output: 02/26/17 02/26/17 06:59 18:59 Intake Total 120 Balance 120 - Medications Medications: Current Medications Albuterol/Ipratropium (Duoneb 3 Mg/0.5 Mg (3 Ml) Ud) 3 ml INH RQ6 PRN PRN Reason: Shortness of Breath Last Admin: 02/25/17 11:22 Dose: 3 ml Colchicine (Colocrys) 0.6 mg PO BID [facility] Last Admin: 02/25/17 17:57 Dose: 0.6 mg Famotidine (Pepcid) 20 mg PO BID [facility] Last Admin: 02/25/17 17:58 Dose: 20 mg Gabapentin (Neurontin) 100 mg PO TID [facility] Last Admin: 02/25/17 17:58 Dose: 100 mg Oxycodone/Acetaminophen (Percocet 5/325 Mg Tab) 1 tab PO Q4H PRN PRN Reason: Pain, moderate (4-7) Stop: 02/26/17 11:56 Last Admin: 02/25/17 22:40 Dose: 1 tab Tramadol HCl (Ultram) 50 mg PO Q8 PRN PRN Reason: Pain, severe (8-10) Last Admin: 02/26/17 02:01 Dose: 50 mg - Labs Labs: 02/24/17 12:31 02/23/17 06:48 PT 17.9 SECONDS (9.7-12.2) H D 02/26/17 06:33 INR 1.6 D 02/26/17 06:33 APTT 38 SECONDS (21-34) H 02/24/17 12:36 Assessment and Plan (1) Foot pain, left Status: Acute (2) DVT (deep venous thrombosis) Status: Chronic (3) Lupus (systemic lupus erythematosus) Status: Chronic (4) Prophylactic measure Status: Acute
[2017-02-26 07:17] LABS: ALBUMIN 3.4 g/dL (3.5-5.0); ALT/SGPT 90 U/L (9-52); AST/SGOT 108 U/L (14-36); BLOOD UREA NITROGEN 12 mg/dL (7-17); CALCIUM 7.3 mg/dl (8.6-10.4); GFR AFRICAN-AMERICAN > 60; GFR NON-AFRICAN AMERICAN > 60
[2017-02-26] MEDS: Albuterol-Ipratrop 3 mg / 0.5 (3 ml) UD INH PRN ×3 (07:39→19:49)
--- NOTE | 2017-02-26 09:27 | CP.PCM.PN ---
Subjective - Date & Time of Evaluation Date of Evaluation: 02/26/17 Time of Evaluation: 10:33 - Subjective Subjective: PGY2 Medicine Note- Dr. Moser's service Pt seen and examined in no immediate distress. Patient states that her joint pain is also being felt in her knees as well. She experienced some improvement though in comparison to yesterday. Patient denies subjective fevers or chills, nausea, vomiting at this time. Objective - Vital Signs/Intake and Output Vital Signs (last 24 hours): Temp Pulse Resp BP Pulse Ox 98.7 F 85 18 140/88 96 02/26/17 08:05 02/26/17 08:05 02/26/17 08:05 02/26/17 08:05 02/26/17 08:05 Intake and Output: 02/26/17 02/26/17 06:59 18:59 Intake Total 120 Balance 120 - Medications Medications: Current Medications Albuterol/Ipratropium (Duoneb 3 Mg/0.5 Mg (3 Ml) Ud) 3 ml INH RQ6 PRN PRN Reason: Shortness of Breath Last Admin: 02/26/17 07:39 Dose: 3 ml Colchicine (Colocrys) 0.6 mg PO BID [facility] Last Admin: 02/26/17 09:17 Dose: 0.6 mg Famotidine (Pepcid) 20 mg PO BID [facility] Last Admin: 02/26/17 09:17 Dose: 20 mg Gabapentin (Neurontin) 100 mg PO TID [facility] Last Admin: 02/26/17 09:17 Dose: 100 mg Oxycodone/Acetaminophen (Percocet 5/325 Mg Tab) 1 tab PO Q4H PRN PRN Reason: Pain, moderate (4-7) Stop: 02/26/17 11:56 Last Admin: 02/25/17 22:40 Dose: 1 tab Tramadol HCl (Ultram) 50 mg PO Q8 PRN PRN Reason: Pain, severe (8-10) Last Admin: 02/26/17 02:01 Dose: 50 mg - Labs Labs: 02/26/17 06:33 02/26/17 06:33 PT 17.9 SECONDS (9.7-12.2) H D 02/26/17 06:33 INR 1.6 D 02/26/17 06:33 APTT 38 SECONDS (21-34) H 02/24/17 12:36 - Constitutional Appears: Non-toxic, No Acute Distress - Head Exam Head Exam: ATRAUMATIC, NORMAL INSPECTION, NORMOCEPHALIC - Eye Exam Eye Exam: EOMI, Normal appearance Pupil Exam: NORMAL ACCOMODATION - ENT Exam ENT Exam: Mucous Membranes Moist - Neck Exam Neck Exam: Full ROM - Respiratory Exam Respiratory Exam: NORMAL BREATHING PATTERN - Extremities Exam Extremities Exam: Full ROM. absent: Joint Swelling, Pedal Edema Additional comments: pulses intact bilaterally, mild pain with palpation; range of motion intact - Neurological Exam Neurological Exam: Alert, Awake, Oriented x3 - Psychiatric Exam Psychiatric exam: Normal Affect, Normal Mood - Skin Skin Exam: Dry, Intact, Normal Color, Warm Assessment and Plan - Assessment and Plan (Free Text) Assessment: (1) Foot pain, left Assessment & Plan: No redness or swelling, no evidence of gout, Uric acid wnl. Podiatry consult x-ray unremarkable. ESR is low but CRP is high. Started Neurontin 100mg TID in addition to other medications. RICE therapy recommended Status: Acute (2) History of DVT (deep venous thrombosis) Assessment & Plan: Most recent venous dopplers show evidence of suspected prior old DVT Patient is on Coumadin 6 mg PO daily. Her INR is 1.6. Re-check INR tomorrow morning. Status: Chronic (3) Lupus (systemic lupus erythematosus) Assessment & Plan: Patient follows up with Dr. Dunlap. Status: Chronic (4) Prophylactic measure Assessment & Plan: Pepcid 20mg PO BID. Status: Acute To be discharged to [facility] subacute rehab once authorization is obtained. Discussed with attending. All management and planning per Dr. Moser.
--- NOTE | 2017-02-26 12:06 | CP.PCM.PN ---
Subjective - Date & Time of Evaluation Date of Evaluation: 02/26/17 Time of Evaluation: 12:02 - Subjective Subjective: podiatry progress note for Dr. Bonilla, 57 y/o female seen at bedside with attending Dr. Bonilla, for left foot pain. Patient states that the pain has improved a little but is still having moderate pain to her left foot. Patient denies any acute events overnight. Patient denies any other pedal complaints. Patient denies n/f/v/d/c/sob. Objective - Vital Signs/Intake and Output Vital Signs (last 24 hours): Temp Pulse Resp BP Pulse Ox 98.7 F 85 18 140/88 96 02/26/17 08:05 02/26/17 08:05 02/26/17 08:05 02/26/17 08:05 02/26/17 08:05 Intake and Output: 02/26/17 02/26/17 06:59 18:59 Intake Total 120 Balance 120 - Medications Medications: Current Medications Albuterol/Ipratropium (Duoneb 3 Mg/0.5 Mg (3 Ml) Ud) 3 ml INH RQ6 PRN PRN Reason: Shortness of Breath Last Admin: 02/26/17 07:39 Dose: 3 ml Colchicine (Colocrys) 0.6 mg PO BID [facility] Last Admin: 02/26/17 09:17 Dose: 0.6 mg Famotidine (Pepcid) 20 mg PO BID [facility] Last Admin: 02/26/17 09:17 Dose: 20 mg Gabapentin (Neurontin) 100 mg PO TID [facility] Last Admin: 02/26/17 09:17 Dose: 100 mg Tramadol HCl (Ultram) 50 mg PO Q8 PRN PRN Reason: Pain, severe (8-10) Last Admin: 02/26/17 02:01 Dose: 50 mg Warfarin Sodium (Coumadin) 6 mg PO 1800 [facility] Stop: 02/26/17 18:01 - Labs Labs: 02/26/17 06:33 02/26/17 06:33 PT 17.9 SECONDS (9.7-12.2) H D 02/26/17 06:33 INR 1.6 D 02/26/17 06:33 APTT 38 SECONDS (21-34) H 02/24/17 12:36 - Constitutional Appears: Well, Non-toxic, No Acute Distress - Extremities Exam Additional comments: left lower extremity focused: vasc: palpable DP/lightly palpable PT pulses, TG wnl. CFT < 3 sec to all digits neuro: grossly intact derm: no edema, no erythema, no open lesions, no acute clinical signs of infection, no hyperkeratotic lesions, no interdigital maceration ortho: moderate pain on palpation to plantar foot, unable to wiggle toes due to guarding and pain, unable to assess muscle ROM due to guarding - Neurological Exam Neurological Exam: Alert, Awake, Oriented x3 - Psychiatric Exam Psychiatric exam: Normal Affect, Normal Mood Assessment and Plan - Assessment and Plan (Free Text) Assessment: 57 y/o female seen at bedside for left foot pain Plan: patient evaluated and chart reviewed seen at bedside with attending Dr. Bonilla labs and vitals reviewed; afebrile, WBC 8.7 x rays of left foot reveal no acute abnormalities, no fracture or dislocation uric acid 4.0- cont. gout meds instructed patient to RICE therapy prn for pain patient stable for d/c to subacute rehab facility podiatry will continue to follow while patient remains in house
[2017-02-26] MEDS ORDERED: Oxycodone/Acetaminophen 5/325 mg Tab PO PRN (22:34)
[2017-02-27 06:46] LABS: BASO % 0.7 % (0.0-2.0); EOS # 0.1 K/uL (0.0-0.7); EOS % 1.6 % (0.0-4.0); HEMOGLOBIN 11.3 g/dL (11.0-16.0); LYMPH # 2.3 K/uL (1.0-4.3); LYMPH % 32.9 % (20.0-40.0); MEAN CELL VOLUME 90.5 fL (81.0-99.0); MEAN CORPUSCULAR HEMOGLOBIN 28.9 pg (27.0-31.0); MEAN PLATELET VOLUME 8.6 fL (7.2-11.7); MONO # 0.8 K/uL (0.0-0.8); MONO % 11.4 % (0.0-10.0); NEUT # 3.8 K/uL (1.8-7.0); NEUT % 53.4 % (50.0-75.0); NRBC % 0.1 % (0.0-2.0); RBC 3.9 Mil/uL (3.80-5.20); RED CELL DISTRIBUTION WIDTH 14.7 % (11.5-14.5); WHITE BLOOD COUNT 7.1 K/uL (4.8-10.8)
[2017-02-27 06:48] LABS: INR 1.6; PROTHROMBIN TIME 18.6 SECONDS (9.7-12.2)
--- NOTE | 2017-02-27 07:45 | CP.PCM.PN ---
Subjective - Date & Time of Evaluation Date of Evaluation: 02/27/17 Time of Evaluation: 07:45 - Subjective Subjective: Medicine Progress Note for Dr. Moser's service Pt seen and examined at bedside. She complains of LLE pain in the foot mainly. She explains that she is unable to ambulate due to the pain and struggled with PT yesterday. She went for abdominal u/s study ordered by Dr. Dunlap this morning due to transaminitis. She has chronic back pain from spinal stenosis and explains that this is bothering her as well. No acute events overnight. Objective - Vital Signs/Intake and Output Vital Signs (last 24 hours): Temp Pulse Resp BP Pulse Ox 98.2 F 86 20 97/64 L 98 02/26/17 23:10 02/26/17 23:10 02/26/17 23:10 02/26/17 23:10 02/26/17 23:10 Intake and Output: 02/27/17 02/27/17 06:59 18:59 Intake Total 520 Balance 520 - Medications Medications: Current Medications Albuterol/Ipratropium (Duoneb 3 Mg/0.5 Mg (3 Ml) Ud) 3 ml INH RQ6 PRN PRN Reason: Shortness of Breath Last Admin: 02/26/17 19:49 Dose: 3 ml Colchicine (Colocrys) 0.6 mg PO BID [facility] Last Admin: 02/26/17 17:24 Dose: 0.6 mg Famotidine (Pepcid) 20 mg PO BID [facility] Last Admin: 02/26/17 17:24 Dose: 20 mg Gabapentin (Neurontin) 100 mg PO TID [facility] Last Admin: 02/26/17 17:24 Dose: 100 mg Oxycodone/Acetaminophen (Percocet 5/325 Mg Tab) 1 tab PO Q4H PRN PRN Reason: pain scale 4-7 Stop: 03/01/17 22:35 Last Admin: 02/26/17 22:42 Dose: 1 tab Tramadol HCl (Ultram) 50 mg PO Q8 PRN PRN Reason: Pain, severe (8-10) Last Admin: 02/26/17 20:26 Dose: 50 mg - Labs Labs: 02/27/17 06:22 02/26/17 06:33 PT 18.6 SECONDS (9.7-12.2) H 02/27/17 06:22 INR 1.6 02/27/17 06:22 APTT 38 SECONDS (21-34) H 02/24/17 12:36 - Constitutional Appears: No Acute Distress - Head Exam Head Exam: ATRAUMATIC, NORMOCEPHALIC - Eye Exam Eye Exam: EOMI - ENT Exam ENT Exam: Mucous Membranes Moist - Respiratory Exam Respiratory Exam: Clear to Ausculation Bilateral, NORMAL BREATHING PATTERN. absent: Rhonchi, Wheezes - Cardiovascular Exam Cardiovascular Exam: REGULAR RHYTHM, +S1, +S2 - GI/Abdominal Exam GI & Abdominal Exam: Soft. absent: Tenderness - Extremities Exam Extremities Exam: Joint Swelling (LLE- mild), Tenderness (LLE). absent: Calf Tenderness, Pedal Edema - Neurological Exam Neurological Exam: Alert, Awake, Oriented x3 - Skin Skin Exam: Dry, Warm Assessment and Plan - Assessment and Plan (Free Text) Plan: Foot pain, left Podiatry Consulted- Dr. Shameka douglas appreciated instructed patient to RICE therapy prn for pain patient stable for d/c to subacute rehab facility podiatry will continue to follow while patient remains in house uric acid 4.0 x-ray unremarkable ESR is low CRP elevated Neurontin 100mg TID Colchicine 0.6mg po BID Percocet q4prn tramadol 50mg q8prn Transaminitis Follow up abdominal u/s follow up am labs History of DVT Most recent venous dopplers show evidence of suspected prior old DVT Patient is on Coumadin 6 mg PO daily INR was subtherapeutic @ 1.6 yesterday Follow up AM INR results Lupus Consult placed to Dr. Sheron douglas appreciated Prophylactic measure Pepcid 20mg PO BID. To be discharged to [facility] subacute rehab once authorization is obtained. Case discussed with Dr. Moser. All management per Dr. Moser.
[2017-02-27 07:50] LABS: ALBUMIN 3.4 g/dL (3.5-5.0); ALT/SGPT 104 U/L (9-52); AST/SGOT 87 U/L (14-36); BLOOD UREA NITROGEN 14 mg/dL (7-17); CALCIUM 7.6 mg/dl (8.6-10.4); GFR AFRICAN-AMERICAN > 60; GFR NON-AFRICAN AMERICAN > 60; MAGNESIUM 1.9 mg/dL (1.6-2.3)
--- NOTE | 2017-02-27 10:41 | US ---
HISTORY: elevated LFT's COMPARISON: CT abdomen and pelvis without contrast performed 12/26/16 TECHNIQUE: Sonographic evaluation of the abdomen. FINDINGS: LIVER: Measures 13.8 cm in sagittal dimension. Echogenic liver may be seen in setting of hepatic parenchymal disease or fatty infiltration. Probable right hepatic lobe cyst measures approximately 0.4 x 0.3 x 0.5 cm. The main portal vein appears patent with normal directional flow. No intrahepatic bile duct dilatation. GALLBLADDER: No gallstones. No gallbladder wall thickening. Negative sonographic Waddell's sign as assessed by the seafood clerk. COMMON BILE DUCT: Measures 3 mm. PANCREAS: Not well visualized. RIGHT KIDNEY: Measures 9.7 x 4.4 x 5.5cm. Midpole renal cyst measures approximately 0.6 x 0.6 x 0.6 cm. Tiny echogenic structure within the right upper pole kidney, possibly nonobstructing calculus. No obstructing calculus or hydronephrosis identified. LEFT KIDNEY: Measures 11.2 x 5.5 x 5.4 cm. No obstructing calculus or hydronephrosis identified. SPLEEN: Measures approximately 6.4 cm. AORTA: Limited views appear grossly unremarkable. IVC: IVC filter. Limited views appear otherwise grossly unremarkable. OTHER FINDINGS: None. IMPRESSION: Hepatic cysts. Right midpole renal cyst. Question nonobstructing right upper pole calculus. Echogenic liver may be seen in setting of hepatic parenchymal disease or fatty infiltration.
--- NOTE | 2017-02-27 11:15 | CP.PCM.PN ---
Subjective - Date & Time of Evaluation Date of Evaluation: 02/27/17 Time of Evaluation: 11:12 - Subjective Subjective: podiatry progress note for Dr. Bonilla, 57 y/o female seen at bedside for left foot pain. Patient states that the pain has improved a little but is still having moderate pain to her left foot. SHe states that PT came by yesterday but she was unable to move around with the walker due to extreme pain in her feet. She complains of new onset lower back pain. Patient denies any acute events overnight. Patient denies any other pedal complaints. Patient denies n/f/v/d/c/sob. Objective - Vital Signs/Intake and Output Vital Signs (last 24 hours): Temp Pulse Resp BP Pulse Ox 97.4 F L 80 18 101/70 100 02/27/17 08:02 02/27/17 08:02 02/27/17 08:02 02/27/17 08:02 02/27/17 08:02 Intake and Output: 02/27/17 02/27/17 06:59 18:59 Intake Total 520 Balance 520 - Medications Medications: Current Medications Albuterol/Ipratropium (Duoneb 3 Mg/0.5 Mg (3 Ml) Ud) 3 ml INH RQ6 PRN PRN Reason: Shortness of Breath Last Admin: 02/26/17 19:49 Dose: 3 ml Colchicine (Colocrys) 0.6 mg PO BID [facility] Last Admin: 02/27/17 09:19 Dose: 0.6 mg Famotidine (Pepcid) 20 mg PO BID [facility] Last Admin: 02/27/17 09:19 Dose: 20 mg Gabapentin (Neurontin) 100 mg PO TID [facility] Last Admin: 02/27/17 09:19 Dose: 100 mg Oxycodone/Acetaminophen (Percocet 5/325 Mg Tab) 1 tab PO Q4H PRN PRN Reason: pain scale 4-7 Stop: 03/01/17 22:35 Last Admin: 02/26/17 22:42 Dose: 1 tab Tramadol HCl (Ultram) 50 mg PO Q8 PRN PRN Reason: Pain, severe (8-10) Last Admin: 02/26/17 20:26 Dose: 50 mg Warfarin Sodium (Coumadin) 6 mg PO 1800 [facility] Stop: 02/27/17 18:01 - Labs Labs: 02/27/17 06:22 02/27/17 06:22 PT 18.6 SECONDS (9.7-12.2) H 02/27/17 06:22 INR 1.6 02/27/17 06:22 APTT 38 SECONDS (21-34) H 02/24/17 12:36 - Constitutional Appears: Well, Non-toxic, No Acute Distress - Extremities Exam Additional comments: left lower extremity focused: vasc: palpable DP/lightly palpable PT pulses, TG wnl. CFT < 3 sec to all digits neuro: grossly intact derm: no edema, no erythema, no open lesions, no acute clinical signs of infection, no hyperkeratotic lesions, no interdigital maceration ortho: moderate pain on palpation to plantar foot, unable to wiggle toes due to guarding and pain, unable to assess muscle ROM due to guarding - Neurological Exam Neurological Exam: Alert, Awake, Oriented x3 - Psychiatric Exam Psychiatric exam: Normal Affect, Normal Mood Assessment and Plan - Assessment and Plan (Free Text) Assessment: 57 y/o female seen at bedside for left foot pain Plan: patient evaluated and chart reviewed discussed in detail with attending Dr. Bonilla labs and vitals reviewed; afebrile, WBC 7.1 x rays of left foot reveal no acute abnormalities, no fracture or dislocation cont. gout meds instructed patient to RICE therapy prn for pain cont. PT educated patient on importance of getting out of bed and walking patient stable for d/c to subacute rehab facility podiatry will continue to follow while patient remains in house
[2017-02-27 12:59] LABS: ANTI SREPTOLYSIN O NEGATIVE (NEGATIVE)
[2017-02-27 16:17] VITALS: BP 96/66; PULSE 90; RESP 20; TEMP 98.1; O2SAT 96
[2017-02-28 19:52] LABS: RNP <1.0 AI (<1.0)
== END 2017-02-27 17:10 | DRG 244 ==
LOC: C.ER 05:23 → C.9E 08:02 → C.6T 11:44
PROVIDERS: ADMIT Internal Medicine Pulmonary Disease; ATTEND Internal Medicine Pulmonary Disease
DX: M10.9 Gout, unspecified (principal); J44.9 Chronic obstructive pulmonary disease, unspecified; E11.22 Type 2 diabetes mellitus with diabetic chronic kidney disease; M32.9 Systemic lupus erythematosus, unspecified; L03.116 Cellulitis of left lower limb; N18.9 Chronic kidney disease, unspecified; G47.30 Sleep apnea, unspecified; G89.29 Other chronic pain; M48.00 Spinal stenosis, site unspecified; Z86.711 Personal history of pulmonary embolism; Z79.01 Long term (current) use of anticoagulants; Z87.01 Personal history of pneumonia (recurrent); I34.1 Nonrheumatic mitral (valve) prolapse; R39.11 Hesitancy of micturition

== ENCOUNTER 2017-09-30 06:32 | Day surgery (SDC) | payer OTHER ==
[2017-09-30 07:55] LABS: INR 1.4
[2017-09-30 08:01] LABS: PROTHROMBIN TIME 14.8 SECONDS (9.7-12.2)
[2017-09-30] MEDS ORDERED: Lactated Ringer's 500 ML IV ONE (09:09)
[2017-09-30] MEDS ORDERED: Propofol 10 mg/ml Inj (20 ML) ONE (09:17)
[2017-09-30] MEDS ORDERED: Midazolam 2 MG/2 ML VIAL ONE (09:17)
--- NOTE | 2017-09-30 09:20 | CP.SDSHP ---
Same Day Surgery H & P - History Proposed Procedure: EGD Pre-Op Diagnosis: epigastric pain - Previous Medical/Surgical History Cardiac: Hypertension, PVD Pulmonary: Asthma, Emphysema/COPD Misc: Other (Fatty Liver, GERD, SLE, DVT, Gastritis, Hemorrhoids) Comments: INR=1.4 today after coumadin held for three days Previous Surgical History: VC filter. . PN cyst drainage - Allergies Allergies: Allergies Iodinated Contrast- Oral and IV Dye [Iodinated Contrast Media - IV Dye] Allergy (Verified 02/23/17 05:39) RASH morphine Allergy (Verified 02/23/17 05:39) RASH Penicillins Allergy (Verified 02/23/17 05:39) RASH prednisone Allergy (Verified 02/23/17 05:39) RASH Sulfa (Sulfonamide Antibiotics) Allergy (Verified 02/23/17 05:39) RASH - Physical Exam Vital Signs: Vital Signs 09/30/17 07:11 Temperature 97. F L Pulse Rate 73 Respiratory 19 Rate Blood Pressure 122/81 O2 Sat by Pulse 98 Oximetry Mental Status: Alert & Oriented x3 Neuro: WNL Heart: WNL Lungs: WNL GI: WNL - Impression Impression: epigastric pain Pt. Evaluated Today:Candidate for Anesthesia & Procedure: Yes - Date & Time Date: 09/30/17 Time: 09:20 Short Stay Discharge - Short Stay Discharge Admitting Diagnosis/Reason for Visit: EPIGASTRIC PAIN, DYSPHAGIA UNSPEC, FATTY ( CHANGE) Disposition: HOME/ ROUTINE
[2017-09-30 09:58] VITALS: TEMP 97.5
[2017-09-30 10:02] VITALS: O2SAT 100
[2017-09-30 10:38] VITALS: BP 109/76; PULSE 56; RESP 15
== END 2017-09-30 10:53 | disposition home or self-care (01) ==
LOC: C.ENDO 06:32
PROVIDERS: ATTEND Internal Medicine Gastroenterology
DX: K21.9 Gastro-esophageal reflux disease without esophagitis (principal); K76.0 Fatty (change of) liver, not elsewhere classified; K29.70 Gastritis, unspecified, without bleeding
CPT/HCPCS: 36415; 43239; 85610; 88305; 88342; J2250; J2704; J7120

== ENCOUNTER 2018-07-01 07:39 | Emergency (ER) | payer OTHER ==
[2018-07-01 07:49] VITALS: BMI 25.0
[2018-07-01 07:51] VITALS: BP 125/86; PULSE 72; RESP 18; TEMP 97.8; O2SAT 94
--- NOTE | 2018-07-01 08:47 | C.PDOC ---
History Of Present Illness 58 y/o female presents to the ER complaining of bilateral trapezius pain which has been present since yesterday. Patient states that the pain is worse with hot showers and heating pads. Patient reports that she usually takes Tramadol for the pain but she ran out of the medication. Patient has many presentations for chronic pain issues in [facility]. Denies having headache, dizziness,CP, and SOB. [place] [employer] shows extensive Lorazepam and Tramadol Regimen. Time Seen by Provider: 07/01/18 08:03 Chief Complaint (Nursing): Back Pain History Per: Patient History/Exam Limitations: no limitations Onset/Duration Of Symptoms: Days Current Symptoms Are (Timing): Still Present Severity: Moderate Past Medical History Reviewed: Historical Data, Nursing Documentation, Vital Signs Vital Signs: Last Vital Signs Temp 97.8 F 07/01/18 07:48 Pulse 72 07/01/18 07:48 Resp 18 07/01/18 07:48 BP 125/86 07/01/18 07:48 Pulse Ox 94 L 07/01/18 07:48 Primary Care Provider: Gretchen Moser - Medical History PMH: Anxiety, Arthritis, Asthma, COPD, Depression, Diabetes (New Onset), Deep Vein Thrombosis, Gastritis, Kidney Stones, Mitral Valve Prolapse, Pneumonia, Pulmonary Embolism, Chronic Kidney Disease, Sleep Apnea Surgical History: Endoscopy - [facility] Procedures CYSTOSCOPY NEC (10/05/14) URETEROSCOPY (10/05/14) Family History: States: No Known Family Hx - Social History Hx Tobacco Use: No Hx Alcohol Use: No Hx Substance Use: No - Immunization History Hx Tetanus Toxoid Vaccination: Yes Hx Influenza Vaccination: Yes Hx Pneumococcal Vaccination: Yes Review Of Systems Except As Marked, All Systems Reviewed And Found Negative. Cardiovascular: Negative for: Chest Pain Respiratory: Negative for: Shortness of Breath Gastrointestinal: Negative for: Nausea, Vomiting Musculoskeletal: Positive for: Other (bilateral trapezius pain) Neurological: Negative for: Headache, Dizziness Physical Exam - Physical Exam Appears: Other (mild distress, flat affect) Skin: Normal Color, Warm, Dry Head: Atraumatic, Normacephalic Eye(s): bilateral: Normal Inspection Nose: Normal Oral Mucosa: Moist Neck: Normal ROM, Supple, Other (bilateral trapezius tenderness) Chest: Symmetrical Cardiovascular: Rhythm Regular Respiratory: Normal Breath Sounds, No Rales, No Rhonchi, No Wheezing Gastrointestinal/Abdominal: Normal Exam, Soft, No Tenderness, No Guarding, No Rebound Neurological/Psych: Oriented x3, Normal Speech ED Course And Treatment O2 Sat by Pulse Oximetry: 94 (RA) Pulse Ox Interpretation: Normal Reevaluation Time: 09:22 Reassessment Condition: Improved Medical Decision Making Medical Decision Making: Plan: --Toradol IM --Tramadol PO --Zofran PO b/l trapezius strain/sprain normal neuro exam anxiety? no intractable pain now ok for opt tx and f/u. Disposition Doctor Will See Patient In The: Office Counseled Patient/Family Regarding: Studies Performed, Diagnosis - Disposition Disposition: HOME/ ROUTINE Disposition Time: 09:23 Condition: GOOD Forms: [facility] (Greenlandic) - Clinical Impression Clinical Impression: Trapezius muscle strain - Scribe Statement The provider has reviewed the documentation as recorded by the Jaja Taylor Provider Attestation: All medical record entries made by the Scribe were at my direction and personally dictated by me. I have reviewed the chart and agree that the record accurately reflects my personal performance of the history, physical exam, medical decision making, and the department course for this patient. I have also personally directed, reviewed, and agree with the discharge instructions and disposition.
== END 2018-07-01 09:32 | disposition home or self-care (01) ==
LOC: C.ER 07:39
DX: S46.912A Strain of unspecified muscle, fascia and tendon at shoulder and upper arm level, left arm, initial encounter (principal); S46.911A Strain of unspecified muscle, fascia and tendon at shoulder and upper arm level, right arm, initial encounter; X58.XXXA Exposure to other specified factors, initial encounter
CPT/HCPCS: 96372; 99283; J1885